=== PATIENT | female | born 1995 ===

== ENCOUNTER 2017-08-20 16:47 | Emergency (ER) | payer OTHER ==
[2017-08-20 17:04] VITALS: RESP 16; O2SAT 100
--- NOTE | 2017-08-20 17:33 | ED PDOC ---
HPI: General Adult Time Seen by Provider: 08/20/17 17:10 Chief Complaint (Nursing): Abdominal Pain Chief Complaint (Provider): Abdominal pain History Per: Patient History/Exam Limitations: no limitations Onset/Duration Of Symptoms: Days (2) Have you had recent travel within the past 21 days to any of the following countries: [place], [place], [place] or [place]?: No Current Symptoms Are (Timing): Still Present Additional History Per: Patient Additional Complaint(s): 22yo female, presents to ED with complaints of lower abdominal pain for the past 2 days. She reports the pain is constant and associated with lower back pain and vaginal spotting yesterday. She reports taking Tylenol with no relief of symptoms. She denies any dysuria, hematuria, and offers no other medical complaints. LMP: 06/24/17 Past Medical History Reviewed: Historical Data, Nursing Documentation, Vital Signs Vital Signs: Last Vital Signs Temp 98.0 F 08/20/17 20:14 Pulse 74 08/20/17 20:14 Resp 16 08/20/17 20:14 BP 107/79 08/20/17 20:14 Pulse Ox 100 08/20/17 20:14 - Medical History PMH: No Chronic Diseases - Surgical History Surgical History: Appendectomy - Family History Family History: States: No Known Family Hx - Allergies Allergies/Adverse Reactions: Allergies Allergy/AdvReac Type Severity Reaction Status Date / Time No Known Allergies Allergy Verified 08/20/17 17:04 Review of Systems ROS Statement: Except As Marked, All Systems Reviewed And Found Negative Gastrointestinal: Positive for: Abdominal Pain (lower abdominal pain) Genitourinary Female: Positive for: Vaginal Bleeding (spotting x 1 day). Negative for: Dysuria, Frequency, Hematuria Musculoskeletal: Positive for: Back Pain Physical Exam - Reviewed Nursing Documentation Reviewed: Yes Vital Signs Reviewed: Yes - Physical Exam Appears: Positive for: Non-toxic, No Acute Distress Head Exam: Positive for: ATRAUMATIC, NORMAL INSPECTION, NORMOCEPHALIC Skin: Positive for: Normal Color Eye Exam: Positive for: Normal appearance Neck: Positive for: Supple Cardiovascular/Chest: Positive for: Regular Rate, Rhythm Respiratory: Positive for: Normal Breath Sounds Gastrointestinal/Abdominal: Positive for: Soft, Tenderness (mild suprapubic tenderness). Negative for: Mass, Guarding, Rebound Back: Positive for: Normal Inspection. Negative for: L CVA Tenderness, R CVA Tenderness Extremity: Positive for: Normal ROM. Negative for: Pedal Edema, Deformity Neurologic/Psych: Positive for: Alert, Oriented - Laboratory Results Result Diagrams: 08/20/17 17:56 08/20/17 17:56 Urine POC: Positive - ECG O2 Sat by Pulse Oximetry: 100 (RA) Pulse Ox Interpretation: Normal Medical Decision Making Medical Decision Making: Impression: Lower abdominal pain Plan: -- Labs -- US OB 1st trimester Progress: 1828 US Pelvis FINDINGS: UTERUS: Gestational sac: Single intrauterine gestation. Measures 2.4 cm compatible with estimated gestational age of 7 weeks, 1 day. Yolk sac: Measures 0.4 cm. pole: [place]-rump length measures 1.3 cm compatible with estimated gestational age of 7 weeks, 4 days. Heart rate: 171 bpm. age (Ultrasound estimated): 7 weeks, 3 days Vielka-gestational hemorrhage: None. Date of delivery (Ultrasound estimated) : 04/05/2018 Uterus measures 7.3 x 4.7 x 4.9 cm. Normal in size and appearance. CERVIX: Measures 3.4 cm. Long and closed. No cervical abnormality seen. RIGHT OVARY: Measures 3.7 x 2.2 x 2.8 cm. No mass lesion. Normal flow. LEFT OVARY: Measures 2.5 x 1.9 x 3.1 cm. No solid mass. Normal flow. FREE FLUID: None. OTHER FINDINGS: None. IMPRESSION: Single viable intrauterine gestation with average ultrasound age is 7 weeks, 3 days. heart rate 171 beats per minute. Cervix long and closed. 1900 Patient signed out to Dr. Monae pending type & screen results, disposition. Scribe attestation: Documented by Karrie Gerber acting as a scribe for Shanell Gottlieb MD. Provider attestation: All medical record entries made by the Scribe were at my direction and personally dictated by me. I have reviewed the chart and agree that the record accurately reflects my personal performance of the history, physical exam, medical decision making, and the department course for this patient. I have also personally directed, reviewed, and agree with the discharge instructions and disposition. Disposition - Clinical Impression Clinical Impression: Threatened miscarriage in early - Patient ED Disposition Is Patient to be Admitted: Transfer of Care - Disposition [facility]] Disposition: Transfer of Care Disposition Time: 19:00 Condition: STABLE Instructions: Threatened Miscarriage, Bleeding With Forms: [facility] (Bulgarian) Patient Signed Over To: Horace Monae Handoff Comments: pending type&screen
[2017-08-20 18:00] LABS: BASO % 0.4 % (0.0-2.0); EOS # 0.2 K/uL (0.0-0.7); EOS % 1.4 % (0.0-4.0); HEMOGLOBIN 13.5 g/dL (12.0-16.0); LYMPH # 2.6 K/uL (1.0-4.3); LYMPH % 20.7 % (20.0-40.0); MEAN CELL VOLUME 87.7 fl (81.0-99.0); MEAN CORPUSCULAR HEMOGLOBIN 29.7 pg (27.0-31.0); MEAN CORPUSCULAR HGB CONC 33.9 g/dL (33.0-37.0); MEAN PLATELET VOLUME 9.3 fl (7.2-11.7); MONO # 1.1 K/uL (0.0-0.8); MONO % 8.5 % (0.0-10.0); NEUT # 8.8 K/uL (1.8-7.0); RBC 4.53 Mil/uL (3.80-5.20); RED CELL DISTRIBUTION WIDTH 15.2 % (11.5-14.5); WHITE BLOOD COUNT 12.7 K/uL (4.8-10.8)
[2017-08-20 18:10] LABS: ALB/GLOB RATIO 1.2 (1.0-2.1); ALBUMIN 4.4 g/dL (3.5-5.0); ALT/SGPT 27 U/L (9-52); AST/SGOT 18 U/L (14-36); BLOOD UREA NITROGEN 10 mg/dl (7-17); CALCIUM 9.6 mg/dL (8.4-10.2); GFR AFRICAN-AMERICAN > 60; GFR NON-AFRICAN AMERICAN > 60
[2017-08-20] MEDS ORDERED: Potassium Chloride 20 mEq ER Tab PO STA (18:10)
[2017-08-20 18:18] LABS: INR 1.1 (0.9-1.2); PARTIAL THROMBOPLASTIN TIME 38.2 Seconds (25.6-37.1); PROTHROMBIN TIME 12.2 Seconds (9.8-13.1)
--- NOTE | 2017-08-20 18:30 | US ---
PROCEDURE: OB Pelvic Ultrasound HISTORY: Abd pain LMP: 06/24/2017 COMPARISON: None available. FINDINGS: UTERUS: Gestational sac: Single intrauterine gestation. Measures 2.4 cm compatible with estimated gestational age of 7 weeks, 1 day. Yolk sac: Measures 0.4 cm. pole: [place]-rump length measures 1.3 cm compatible with estimated gestational age of 7 weeks, 4 days. Heart rate: 171 bpm. age (Ultrasound estimated): 7 weeks, 3 days Vielka-gestational hemorrhage: None. Date of delivery (Ultrasound estimated) : 04/05/2018 Uterus measures 7.3 x 4.7 x 4.9 cm. Normal in size and appearance. CERVIX: Measures 3.4 cm. Long and closed. No cervical abnormality seen. RIGHT OVARY: Measures 3.7 x 2.2 x 2.8 cm. No mass lesion. Normal flow. LEFT OVARY: Measures 2.5 x 1.9 x 3.1 cm. No solid mass. Normal flow. FREE FLUID: None. OTHER FINDINGS: None. IMPRESSION: Single viable intrauterine gestation with average ultrasound age is 7 weeks, 3 days. heart rate 171 beats per minute. Cervix long and closed.
[2017-08-20] MEDS ORDERED: Potassium Chloride 20 mEq ER Tab PO ONE (18:39)
[2017-08-20 18:57] LABS: SQUAMOUS EPITHIAL < 1 /hpf (0-5); URINE BACTERIA RARE (<OCC); URINE BILIRUBIN NEGATIVE (NEGATIVE); URINE BLOOD NEGATIVE (NEGATIVE); URINE CLARITY CLEAR (Clear); URINE COLOR STRAW (YELLOW); URINE GLUCOSE (UA) NEG (Normal); URINE LEUKOCYTE ESTERASE NEG Leu/uL (Negative); URINE PROTEIN NEGATIVE (NEGATIVE); URINE UROBILINOGEN 0.2-1.0 mg/dL (0.2-1.0)
--- NOTE | 2017-08-20 19:19 | ED PDOC ---
- Laboratory Results Result Diagrams: 08/20/17 17:56 08/20/17 17:56 Urine POC: Positive - ECG O2 Sat by Pulse Oximetry: 100 (RA) Pulse Ox Interpretation: Normal Medical Decision Making Medical Decision Making: Time: 1899 Patient signed out to me by Dr. Gottlieb pending type and screen. Time: 1957 Labs reviewed, patient is Rh positive. Patient stable for discharge home, instructed on pelvic rest. Return precautions given as well. Diagnosis: Threatened Scribe attestation: Documented by Karrie Gerber acting as a scribe for Horace Monae MD. Provider attestation: All medical record entries made by the Scribe were at my direction and personally dictated by me. I have reviewed the chart and agree that the record accurately reflects my personal performance of the history, physical exam, medical decision making, and the department course for this patient. I have also personally directed, reviewed, and agree with the discharge instructions and disposition. Disposition - Clinical Impression Clinical Impression: Threatened miscarriage in early - POA Present On Arrival: None - Disposition [facility]errals: [facility] [Outside] Disposition: Routine/Home Disposition Time: 20:00 Condition: STABLE Instructions: Threatened Miscarriage, Bleeding With Forms: [employer] (Sudanese)
[2017-08-20 20:17] VITALS: BP 107/79; PULSE 74; TEMP 98
== END 2017-08-20 20:14 | disposition home or self-care (01) ==
LOC: H.ER 16:47
DX: O20.0 Threatened abortion (principal); O26.891 Other specified pregnancy related conditions, first trimester

== ENCOUNTER 2017-10-02 10:26 | Emergency (ER) | payer SELFPAY ==
[2017-10-02 10:32] VITALS: BMI 28.0
[2017-10-02 10:34] VITALS: RESP 20
[2017-10-02 11:24] LABS: SQUAMOUS EPITHIAL 5 /hpf (0-5); URINE BACTERIA RARE (<OCC); URINE BILIRUBIN NEGATIVE (NEGATIVE); URINE BLOOD MODERATE (NEGATIVE); URINE CLARITY CLOUDY (Clear); URINE COLOR YELLOW (YELLOW); URINE GLUCOSE (UA) NEG (Normal); URINE LEUKOCYTE ESTERASE NEG Leu/uL (Negative); URINE PROTEIN 30 mg/dL (NEGATIVE); URINE UROBILINOGEN 0.2-1.0 mg/dL (0.2-1.0)
--- NOTE | 2017-10-02 11:31 | ED PDOC ---
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 Notes mild R sided cramping and ongoing back pain which isnt new. States thus far unremarkable, sees [facility]. Denies complications. Denies urinary symptoms, fever, syncope or weakness. Past Medical History Reviewed: Historical Data, Nursing Documentation, Vital Signs Vital Signs: Last Vital Signs Temp 97.8 F 10/02/17 10:33 Pulse 87 10/02/17 10:33 Resp 20 10/02/17 10:33 BP 106/63 10/02/17 10:33 Pulse Ox 100 10/02/17 10:33 - Medical History PMH: No Chronic Diseases - Surgical History Surgical History: Appendectomy - Family History Family History: States: Unknown Family Hx - Social History Current smoker - smoking cessation education provided: No - Allergies Allergies/Adverse Reactions: Allergies Allergy/AdvReac Type Severity Reaction Status Date / Time No Known Allergies Allergy Verified 08/20/17 17:04 Review of Systems Constitutional: Negative for: Fever Cardiovascular: Negative for: Chest Pain Respiratory: Negative for: Shortness of Breath Gastrointestinal: Negative for: Vomiting, Diarrhea Genitourinary Female: Positive for: Vaginal Bleeding, Pelvic Pain Musculoskeletal: Positive for: Back Pain. Negative for: Neck Pain Skin: Negative for: Rash, Lesions, Jaundice Neurological: Negative for: Weakness, Numbness, Headache, Dizziness Psych: Positive for: Anxiety. Negative for: Depression Physical Exam - Reviewed Nursing Documentation Reviewed: Yes Vital Signs Reviewed: Yes - Physical Exam Appears: Positive for: Well, Non-toxic, No Acute Distress Head Exam: Positive for: ATRAUMATIC, NORMAL INSPECTION, NORMOCEPHALIC Skin: Positive for: Normal Color, Warm. Negative for: Pallor Eye Exam: Positive for: EOMI, Normal appearance, PERRL ENT: Positive for: Normal ENT Inspection Neck: Positive for: Normal, Painless ROM Cardiovascular/Chest: Positive for: Regular Rate, Rhythm Respiratory: Positive for: CNT, Normal Breath Sounds Pulses-Radial (L): 3+/4+ Pulses-Radial (R): 3+/4+ Gastrointestinal/Abdominal: Positive for: Soft, Tenderness (mild R sided pelvic tenderness) Back: Positive for: Normal Inspection Extremity: Positive for: Normal ROM Neurologic/Psych: Positive for: Alert, Oriented. Negative for: Motor/Sensory Deficits - Laboratory Results Result Diagrams: 10/02/17 11:25 10/02/17 11:25 Urine POC: Positive Urine dip results: Positive for: Blood - ECG O2 Sat by Pulse Oximetry: 100 Medical Decision Making Medical Decision Making: workup for threatened second trimester initiated labs reviewed and unremarkable Accession No. : [id number] Patient Name / ID : KENZIE TUCKER / [id number] Exam Date : 10/02/2017 11:54:39 ( Approved ) Study Comment : Sex / Age : F / 22Y Creator : Tima Weinstein MD Dictator : Tima Weinstein MD Materials Scientist : Electric Fan Assembler : Tima Weinstein MD Approver2 : Report Date : 10/02/2017 13:20:37 My Comment : Date of service: 10/02/2017 PROCEDURE: Limited ultrasound HISTORY: 15 wks preg bleeding, check cervical length also COMPARISON: 08/20/2017. TECHNIQUE: Standard protocol for this study/examination. FINDINGS: Cephalic presentation. Anterior Placenta. No evidence of abruption or previa Gestational age derived from LMP 14 weeks 2 days. MORRO 03/31/2018. Gestational age derived from the following biometric parameters 14 weeks 3 days. MORRO 03/30/2018 Biparietal diameter 2.67 cm Head circumference 10.05 cm Abdominal circumference 7.76 cm Femur length 1.46 cm Estimated weight 94.6 g Calculated cardiac rate 155 beats per min. Closed cervix measuring 4.10 cm IMPRESSION: Single live intrauterine gestation. Gestational concordance documented. Adequate interval progression compared to the prior study. Closed cervix 4.1 cm in length. Results discussed in reformatory attendant Elizabeth Castellanos Followup OB as directed Pelvic rest recommended, no sex nothing in vagina, no heavy exertion. Disposition - Clinical Impression Clinical Impression: Vaginal bleeding before 22 weeks gestation - Patient ED Disposition Is Patient to be Admitted: No Counseled Patient/Family Regarding: Studies Performed, Diagnosis, Need For Followup, Rx Given - Disposition Referrals: [facility] [Outside] Disposition: Routine/Home Disposition Time: 14:01 Condition: STABLE Additional Instructions: Recommend pelvic rest, no sex, no heavy exertion, nothing in vagina. Return to ER for any return of bleeding or pain. See OB doctor in 1 week for followup. Recomiende descanso plvico, sin sexo, sin esfuerzos pesados, nada en la vagina. Regrese a la jade de emergencias por cualquier retorno de sangrado o dolor. Theodore OB mdico en 1 semana para el seguimiento. Instructions: Bleeding With (DC) Forms: [facility] (Indonesian) Print Language: K[place]
[2017-10-02 11:37] LABS: BASO # 0.1 K/uL (0.0-0.2); BASO % 0.5 % (0.0-2.0); EOS # 0.1 K/uL (0.0-0.7); EOS % 1.4 % (0.0-4.0); HEMOGLOBIN 13.9 g/dL (12.0-16.0); LYMPH # 2.1 K/uL (1.0-4.3); LYMPH % 21.1 % (20.0-40.0); MEAN CELL VOLUME 87.5 fl (81.0-99.0); MEAN CORPUSCULAR HEMOGLOBIN 30.4 pg (27.0-31.0); MEAN CORPUSCULAR HGB CONC 34.8 g/dL (33.0-37.0); MEAN PLATELET VOLUME 9.4 fl (7.2-11.7); MONO # 0.7 K/uL (0.0-0.8); MONO % 7.1 % (0.0-10.0); NEUT # 6.8 K/uL (1.8-7.0); NEUT % 69.9 % (50.0-75.0); NRBC % 0.1 % (0.0-0.0); RBC 4.57 Mil/uL (3.80-5.20); RED CELL DISTRIBUTION WIDTH 14.4 % (11.5-14.5); WHITE BLOOD COUNT 9.8 K/uL (4.8-10.8)
[2017-10-02 11:44] LABS: ALB/GLOB RATIO 1.2 (1.0-2.1); ALBUMIN 4.4 g/dL (3.5-5.0); ALT/SGPT 21 U/L (9-52); AST/SGOT 20 U/L (14-36); BLOOD UREA NITROGEN 4 mg/dl (7-17); CALCIUM 9.4 mg/dL (8.4-10.2); GFR AFRICAN-AMERICAN > 60; GFR NON-AFRICAN AMERICAN > 60
--- NOTE | 2017-10-02 13:22 | US ---
Date of service: 10/02/2017 PROCEDURE: Limited ultrasound HISTORY: 15 wks preg bleeding, check cervical length also COMPARISON: 08/20/2017. TECHNIQUE: Standard protocol for this study/examination. FINDINGS: Cephalic presentation. Anterior Placenta. No evidence of abruption or previa Gestational age derived from LMP 14 weeks 2 days. MORRO 03/31/2018. Gestational age derived from the following biometric parameters 14 weeks 3 days. MORRO 03/30/2018 Biparietal diameter 2.67 cm Head circumference 10.05 cm Abdominal circumference 7.76 cm Femur length 1.46 cm Estimated weight 94.6 g Calculated cardiac rate 155 beats per min. Closed cervix measuring 4.10 cm IMPRESSION: Single live intrauterine gestation. Gestational concordance documented. Adequate interval progression compared to the prior study. Closed cervix 4.1 cm in length.
[2017-10-02 14:42] VITALS: BP 128/78; PULSE 78; TEMP 98; O2SAT 98
== END 2017-10-02 14:43 | disposition home or self-care (01) ==
LOC: H.ER 10:26
DX: O20.8 Other hemorrhage in early pregnancy (principal); Z3A.15 15 weeks gestation of pregnancy

== ENCOUNTER 2018-01-17 21:06 | Emergency (ER) | payer SELFPAY ==
[2018-01-17 21:06] VITALS: BMI 28.0
[2018-01-17] MEDS: Sodium Chloride 0.9% 1,000 ML IV STA (22:41)
[2018-01-17 22:42] LABS: BASO % 0.3 % (0.0-2.0); EOS # 0.2 K/uL (0.0-0.7); EOS % 1.6 % (0.0-4.0); HEMOGLOBIN 12.6 g/dL (12.0-16.0); LYMPH # 1.7 K/uL (1.0-4.3); LYMPH % 15.7 % (20.0-40.0); MEAN CELL VOLUME 90.8 fl (81.0-99.0); MEAN CORPUSCULAR HEMOGLOBIN 31.2 pg (27.0-31.0); MEAN CORPUSCULAR HGB CONC 34.4 g/dL (33.0-37.0); MEAN PLATELET VOLUME 9.3 fl (7.2-11.7); MONO % 9.3 % (0.0-10.0); NEUT % 73.1 % (50.0-75.0); RBC 4.03 Mil/uL (3.80-5.20)
[2018-01-17 22:43] LABS: VENOUS BLOOD GAS BASE EXCESS -1.3 mmol/L (0.0-2.0); VENOUS BLOOD GAS PCO2 36 mmHg (40-60); VENOUS BLOOD GAS PO2 42 mm/Hg (30-55); VENOUS BLOOD PH 7.41 (7.32-7.43)
[2018-01-17 22:49] LABS: SQUAMOUS EPITHIAL < 1 /hpf (0-5); URINE AMORPHOUS SEDIMENT RARE /ul (<OCC); URINE BACTERIA RARE (<OCC); URINE BILIRUBIN NEGATIVE (NEGATIVE); URINE BLOOD NEGATIVE (NEGATIVE); URINE CLARITY CLOUDY (Clear); URINE COLOR YELLOW (YELLOW); URINE GLUCOSE (UA) NEG (Normal); URINE LEUKOCYTE ESTERASE NEG Leu/uL (Negative); URINE PROTEIN NEGATIVE (NEGATIVE); URINE UROBILINOGEN 0.2-1.0 mg/dL (0.2-1.0)
[2018-01-17 22:55] LABS: BLOOD UREA NITROGEN 5 mg/dl (7-17); CALCIUM 9.2 mg/dL (8.4-10.2); GFR NON-AFRICAN AMERICAN > 60
--- NOTE | 2018-01-18 00:10 | ED PDOC ---
HPI: SOB/CHF/COPD Time Seen by Provider: 01/17/18 22:07 Chief Complaint (Nursing): Shortness Of Breath Chief Complaint (Provider): Palpitations History Per: Patient History/Exam Limitations: no limitations Onset/Duration Of Symptoms: Days (off and on) Additional Complaint(s): 34 yo F, 29 weeks presents with palpitations and feeling of chest tightness. Pt states she has had these symptoms multiple times throughout the past few weeks. She was seen by her primary doctor yesterday and the workup was normal. Pt denies trouble breathing, chest pain, or other symptoms. PT denies abdominal pain, vaginal bleeding, or dysuria. NO fever or recent illness. NO sick contact, recent immobility, calf pain/swelling or other symptoms. Past Medical History Vital Signs: Last Vital Signs Temp 97.4 F L 01/17/18 21:12 Pulse 94 H 01/17/18 21:12 Resp 18 01/17/18 21:12 BP 113/73 01/17/18 21:12 Pulse Ox 99 01/17/18 21:12 - Surgical History Surgical History: Appendectomy - Family History Family History: States: Unknown Family Hx - Allergies Allergies/Adverse Reactions: Allergies Allergy/AdvReac Type Severity Reaction Status Date / Time No Known Allergies Allergy Verified 01/17/18 21:12 Physical Exam - Physical Exam Appears: Positive for: Well, Non-toxic, No Acute Distress Skin: Positive for: Normal Color, Warm, Dry Eye Exam: Positive for: Normal appearance ENT: Positive for: Normal ENT Inspection Neck: Positive for: Normal Cardiovascular/Chest: Positive for: Regular Rate, Rhythm, Chest Non Tender Respiratory: Positive for: Normal Breath Sounds Pulses-Carotid (L): 2+ Pulses-Carotid (R): 2+ Pulses-Radial (L): 2+ Pulses-Radial (R): 2+ Gastrointestinal/Abdominal: Positive for: Normal Exam, Bowel Sounds Extremity: Positive for: Normal ROM. Negative for: Calf Tenderness - Laboratory Results Result Diagrams: 01/17/18 22:35 01/17/18 22:35 - ECG O2 Sat by Pulse Oximetry: 99 Medical Decision Making Medical Decision Making: Pt presented with palpitation. Denies any symptoms regarding . EKG normal. Labs show no abnormalities. Pt given 1 L of fluids. Vitals have remained WNL thoughout ED stay. Discussed symptoms with patient and pt states she is feeling better now. Pt will follow up with data center architect and primary medical doctor next week. Pt instructed to return if symptoms worsen or if she develops shortness of breath, chest pain, or other new symptoms. Disposition - Disposition Disposition: Routine/Home Disposition Time: 00:11 Condition: IMPROVED
[2018-01-18 00:51] VITALS: BP 122/78; PULSE 93; RESP 16; TEMP 98.7; O2SAT 97
== END 2018-01-18 00:30 | disposition home or self-care (01) ==
LOC: H.ER 21:06
DX: R00.2 Palpitations (principal); O99.513 Diseases of the respiratory system complicating pregnancy, third trimester; Z3A.29 29 weeks gestation of pregnancy
CPT/HCPCS: 80048; 81003; 82803; 84484; 85025; 96360; 99284; J7030

== ENCOUNTER 2018-03-31 09:51 | Inpatient (IN) | payer MEDICAID, SELFPAY ==
[2018-03-31 10:23] VITALS: BMI 30.6
[2018-03-31] MEDS ORDERED: Lactated Ringer's 1,000 ML IV ONE (11:28)
[2018-03-31] MEDS ORDERED: Lactated Ringer's 1,000 ML IV SCH ×2 (11:30→13:00)
[2018-03-31 12:31] VITALS: O2SAT 100
[2018-03-31 12:38] LABS: BASO % 0.1 % (0.0-2.0); EOS # 0.1 K/uL (0.0-0.7); EOS % 0.7 % (0.0-4.0); HEMOGLOBIN 13.9 g/dL (12.0-16.0); LYMPH # 1.8 K/uL (1.0-4.3); LYMPH % 14.1 % (20.0-40.0); MEAN CELL VOLUME 94.3 fl (81.0-99.0); MEAN CORPUSCULAR HEMOGLOBIN 31.3 pg (27.0-31.0); MEAN CORPUSCULAR HGB CONC 33.2 g/dL (33.0-37.0); MEAN PLATELET VOLUME 10.3 fl (7.2-11.7); MONO # 0.8 K/uL (0.0-0.8); MONO % 6.4 % (0.0-10.0); NEUT # 10.1 K/uL (1.8-7.0); NEUT % 78.7 % (50.0-75.0); NRBC % 0.2 % (0.0-0.0); RBC 4.44 Mil/uL (3.80-5.20); RED CELL DISTRIBUTION WIDTH 14.8 % (11.5-14.5); WHITE BLOOD COUNT 12.8 K/uL (4.8-10.8)
[2018-03-31] MEDS ORDERED: Fentanyl/Bupivacaine HCl 250 ML EPI ONE (12:43)
--- NOTE | 2018-03-31 14:20 | OBPN ---
Datetime: 03/31/2018 14:08 IP Progress Impression: Reassuring heart rate IP Procedures: Artificial ROM; Sterile Vag Exam IP Progress Plan: Continue present management; Augmentation Membranes, Provider: Ruptured Amniotic Fluid Color, Provider: Meconium, Light Contraction Comments Provider: Q 2-3 FHR - Baseline A Provider: 140 Gestation - Est Wks by US: 40.0 Presentation-Admit: Vertex IP Progress Note Comment: Assessment: IUP at 40weeks Reaasuring Maternal status S/P Epidural, Comfortable. Plan: Continue monitoring the progress of labor Pitocin for augmentation if contractions spaces out Vital Signs Provider: Reviewed NICHD Accel Fetus A IP Provider: 15X15 FHR Category Provider Fetus A: Category I NICHD Variability Prov Fetus A: Moderate 6-25bpm Dilatation, Provider: 3-4 Effacement, Provider: 90 Station, Provider: -2 NICHD Decel Fetus A IP Provider: None Datetime: 03/31/2018 11:41 IP Informed Consent Obtain: Vaginal Delivery
[2018-03-31] MEDS ORDERED: Oxytocin 30 UNIT 30 UNITS/500 ML BAG IV ONE ×2 (14:22→19:00)
[2018-03-31] MEDS ORDERED: Lidocaine 2% PF (10 ml) Amp ONE (16:43)
[2018-03-31] MEDS ORDERED: Lidocaine 1% Inj (20ml) ONE (18:33)
[2018-03-31] MEDS ORDERED: OXYTOCIN/0.9 % NS 20 UNIT/1,000 ML BAG IV SCH (19:00)
[2018-03-31] MEDS ORDERED: Benzocaine/Menthol SPRAY TOP PRN ×2 (19:06→21:47)
[2018-03-31] MEDS ORDERED: Oxycodone/Acetaminophen 5/325 mg Tab PO PRN ×4 (19:06→21:47)
--- NOTE | 2018-03-31 20:16 | OBDS ---
DELIVERY PERSONNEL Delivery Doctor: Libertad Nicholson MD Pie Icer Machine: Roseann Cardenas RN Anesthesiologist: Chris Romeo MD MATERNAL INFORMATION Delivery Anesthesia: Epidural Medications in Delivery: Pitocin 30u/500mL of NS Estimated Blood Loss (ml): QBL 300 Placenta Cultured: No Maternal Complications: None RN Comments: Jose Espitia MD and Jatin Leggett MD present for delivery Provider Comments: Delivery live baby girl that was suctioned on the perineum and transferred to [facility] her chest. Cord was clamped 3 vessels noted, cord blood sent for lab. Placenta delivered manually int act. EBL 300ml. 1 periurethral and 1 vaginal lacerations 2nd degree repaired with 2-0 vycro. Mother a nd baby tolerated well the procedure, baby Apgars of 9/9. YBecerra PGY 2 LABOR SUMMARY EDC: 03/31/2018 00:00 No. Babies in Womb: 1 Attempted: No Labor Anesthesia: Epidural LABOR INFORMATION Reason for Induction: Not Applicable Onset of Labor: 03/31/2018 07:00 Complete Dilatation: 03/31/2018 18:10 Oxytocin: Augmentation Group B Beta Strep: Negative Antibiotics # of Doses: none Steroids Given: None Reason Steroids Not Administered: Not Applicable MEMBRANES Membranes Rupture Method: Artificial Rupture of Membranes: 03/31/2018 14:05 Length of Rupture (hrs): 4.27 Amniotic Fluid Color: Heavy Meconium Amniotic Fluid Amount: Small STAGES OF LABOR Stage 1 hrs: 11 Stage 1 min: 10 Stage 2 hrs: 0 Stage 2 min: 11 Stage 3 hrs: 0 Stage 3 min: 5 Total Time in Labor hrs: 11 Total Time in Labor min: 26 VAGINAL DELIVERY Episiotomy: None Laceration Extension: Second Degree Laceration Type: Vaginal Laceration Repair: Yes Laceration Repair Note: Second degree laceration done with 2-0 vicryl under local anesthesia with go od cosmesis Initial Vag Sponge Count: 5 Initial Vag Sharps Count: 3 BABY A INFORMATION Infant Delivery Date/Time: 03/31/2018 18:21 Method of Delivery: Vaginal Born in Route : No : N/A Forceps: N/A Vacuum Extraction: N/A Shoulder Dystocia : No SHOULDER DYSTOCIA BABY A Infant Delivery Date/Time: 03/31/2018 18:21 PRESENTATION/POSITION BABY A Presentation: Cephalic Cephalic Presentation: Vertex Breech Presentation: N/A PLACENTA INFORMATION BABY A Placenta Delivery Time : 03/31/2018 18:26 Placenta Method of Delivery: Spontaneous Placenta Status: Delivered SCORES BABY A Heart Rate 1 min: >100 bpm Resp Effort 1 min: Good Cry Reflex Irritability 1 min: Cough or Sneeze or Pulls Away Muscle Tone 1 min: Active Motion Color 1 min: Body [place], Extremities Blue Resuscitation Effort 1 min: Tactile Stimulation SCORE 1 MIN: 9 Heart Rate 5 min: >100 bpm Resp Effort 5 min: Good Cry Reflex Irritability 5 min: Cough or Sneeze or Pulls Away Muscle Tone 5 min: Active Motion Color 5 min: Body [place], Extremities Blue Resuscitation Effort 5 min: N/A SCORE 5 MIN: 9 INFORMATION BABY A Gestational Age at Delivery: 40.0 Gestational Status: Term Infant Outcome : Liveborn Condition : Stable Infant Sex: Male WEIGHT/LENGTH BABY A Birthweight (gms): 2900 Infant Weight (lb): 6 Weight (oz): 6 CORD INFORMATION BABY A No. Cord Vessels: 3 Nuchal Cord : N/A Cord Blood Taken: N/A Infant Suction: None
[2018-04-01 06:49] LABS: BASO % 0.1 % (0.0-2.0); EOS # 0.1 K/uL (0.0-0.7); EOS % 0.4 % (0.0-4.0); HEMOGLOBIN 10.8 g/dL (12.0-16.0); LYMPH # 1.8 K/uL (1.0-4.3); LYMPH % 13.3 % (20.0-40.0); MEAN CELL VOLUME 93.8 fl (81.0-99.0); MEAN CORPUSCULAR HEMOGLOBIN 31.7 pg (27.0-31.0); MEAN CORPUSCULAR HGB CONC 33.8 g/dL (33.0-37.0); MONO # 1.1 K/uL (0.0-0.8); MONO % 8.3 % (0.0-10.0); NEUT # 10.6 K/uL (1.8-7.0); NEUT % 77.9 % (50.0-75.0); NRBC % 0.1 % (0.0-0.0); RBC 3.39 Mil/uL (3.80-5.20); RED CELL DISTRIBUTION WIDTH 14.5 % (11.5-14.5); WHITE BLOOD COUNT 13.6 K/uL (4.8-10.8)
[2018-04-01] MEDS: Multivitamin With Minerals Tab PO SCH (08:38)
[2018-04-01] MEDS ORDERED: Multivitamin With Minerals Tab PO SCH (09:00)
--- NOTE | 2018-04-01 10:38 | OBPPN ---
Datetime: 04/01/2018 07:18 PP Pain Prov: Within normal limits PP Nausea Prov: Denies PP Flatus Prov: Yes PP BM Prov: No PP Breasts Prov: Not Done PP Heart Prov: Normal PP Lungs Prov: Normal PP Abdomen/Uterus Prov: Normal PP Lochia Prov: Normal PP Vulva/Perineum Prov: Not Done PP CVA Tenderness Prov: Not Done PP Extremities Prov: Normal PP C/S Incision Prov: Not Applicable PP Progress Prov: Normal PP Impression Prov: Normal progression PP Plan Prov: Continue present management PP Progress Note Prov: S: Patient sitting up comfortably. Seen and examined at bedside. Endorses hav ing an appetite. Amubulating well. Endorses passing gas, but no stool. w/o difficulties . O: A:22 y/o female s/p day#1 EGA 40 weeks at time of delivery w/ normal progress ion P: Continue present management. Ambulation encouraged. encouraged. Motrin PRN for pa in. DC planning for tomorrow. Didi Lowe, pgyi Addendum by Dr. Bowie: I have evaluated the patient independently and I agree with the above Vital Signs Provider PP: Reviewed; Within Normal Limits
[2018-04-02] MEDS: Multivitamin With Minerals Tab PO SCH (08:08)
--- NOTE | 2018-04-02 09:50 | OBDCSUM ---
Datetime: 04/02/2018 07:04 Discharged to, Provider: Home Follow up at, Provider: [facility] Disch Instr Activity: Normal activity; May Shower Disch Instr Diet: Regular Discharge Instructions, Provider: Routine instructions given Follow up in weeks, Provider: 4-6 wks Disch Referrals: None Contraception discussed, Prov: Yes Disch Activity Restrictions: No exercising; No lifting; No sexual activity; Nothing in vagina - Inte rcourse, tampons, douche Discharge Comment, Provider: Discharge Summary DOA: 03/31/2018 EGA: 40 wks Diagnosis: with 2nd degree perineal tear repair Summary of : 22 y/o s/p with 2nd degree perineal tear repair L_D summary: Patient s/p . Pain was well controlled with pain meds. No nausea, advised to adva nce diet as tolerated. Passing flatus, had BM, voiding well w/o difficulties. Breast feeding without difficulty and supplementing with formula. Lochia is similar to menses volume. Reports she has been h aving regular bowel movements. DOL: 03/31/18 at 18:26 S/P NB: Male : 9/9 Weight: 2900g Lochia= menses, mild pain, controlled with medications Blood type: O+, Antibody Neg CBC pp: 10.8/31.8 Discharge Date: 04/02/2018 Time 10:00 AM Discharge Instructions: -Encourage -Encourage ambulation -Ibuprofen for pain PRN - ED precautions: If excessive bleeding, pain that does not get relief, fever >100.4, palpitations , SOB, CP or other concerning symptom go to the ED. - PT was urged if feeling sad, mood swing, depression, neglect of baby, suicidal thoughts, homicid al thoughts go to ER or call 911 for help - Pt should go to her Primary care doctor if have difficulty with breast feeding - F/U at [facility] in 4-6 week for checkup. -- Porfirio Briggs MD, PGY-1 Agree with above discharge note --Dr. Art Contraception after Delivery: Undecided
--- NOTE | 2018-04-02 09:50 | OBPPN ---
Datetime: 04/02/2018 07:01 PP Pain Prov: Within normal limits PP Nausea Prov: Denies PP Flatus Prov: Yes PP BM Prov: Yes PP Breasts Prov: Not Done PP Heart Prov: Normal PP Lungs Prov: Normal PP Abdomen/Uterus Prov: Normal PP Lochia Prov: Normal PP Vulva/Perineum Prov: Not Done PP CVA Tenderness Prov: Normal PP Extremities Prov: Normal PP Impression Prov: Normal progression PP Plan Prov: Discharge PP Progress Note Prov: 22 y/o , S/P with 2nd degree perineal tear repair PPD2 Patient seen and evaluated at bedside. Reports mild abdominal pain which is well controlled with p ain medications. Tolerating regular diet well. Lochia similar to menses. Reports flatus and had BM. D enies fever, chills, nausea, vomiting, diarrhea, CP, SOB. w/o difficulties. O: Vitally stable GEN: Patient is comfortable. In no acute distress. Cardio: S1S2, no murmurs, gallops or rubs. Lungs: clear air entry sounds b/l, no wheezing Abdomen: BS+, tenderness to palpation. Uterus is firm and at the level of the umbilicus. EXT: No edema, calves non-tender to palpation, Juan Carlos's Negative Assessment/Plan: 22 y/o , S/P with 2nd degree perineal tear repair on PPD2. Pt remains af ebrile, tolerating pain with medication. OOB with caution - SCDs for DVT prophylaxis, encouraged ambulating - Percocet 5/325mg, and Motrin 600mg prn for pain. - Colace for constipation - Continue to encourage and ambulating - f/u CBC post op: 10.8/31.8 - Continue present management. - Anticipated D/C today, on 04/02/18 --- Porfirio Briggs MD PGY-1 Patient seen and examined by me this am. Agree with above note however patient only to use Motrin for pain at this time. and ambulation encouarged. RTC 6 wks for visit. --Dr. Art Vital Signs Provider PP: Reviewed; Within Normal Limits
[2018-04-02 21:41] VITALS: BP 120/74; PULSE 114; RESP 20; TEMP 97.8
== END 2018-04-02 16:30 | disposition home or self-care (01) | DRG 560 ==
LOC: H.EROB2 09:51 → H.EROB 10:29 → H.EROB2 11:28 → H.EROB 11:29 → H.L&D 12:33 → H.OB/GYN 21:26
PROVIDERS: ADMIT Obstetrics & Gynecology; ATTEND Obstetrics & Gynecology
PROC: 10E0XZZ Delivery of Products of Conception, External Approach (ICD-10-PCS; principal; 2018-03-31)
PROC: 0KQM0ZZ Repair Perineum Muscle, Open Approach (ICD-10-PCS; 2018-03-31)
PROC: 10907ZC Drainage of Amniotic Fluid, Therapeutic from Products of Conception, Via Natural or Artificial Opening (ICD-10-PCS; 2018-03-31)
DX: O48.0 Post-term pregnancy (principal); O77.0 Labor and delivery complicated by meconium in amniotic fluid; O70.1 Second degree perineal laceration during delivery; Z37.0 Single live birth; Z3A.40 40 weeks gestation of pregnancy